=== PATIENT | female | born 1955 | race Caucasian/White ===

== ENCOUNTER 2018-04-14 08:30 | Outpatient (RCR) | payer MEDICAID, SELFPAY ==
--- NOTE | 2018-03-16 10:24 | PTTR_ITS ---
DATE: 03/16/18 SUBJECTIVE: Continues to c/o stiffness when reaching behind her back. OBJECTIVE: KX applied to all codes N/A Manual therapy: ([id number]). To R shoulder: R posterior capsule STM, infraspinatus down regulations, and supraspinatus TPR's GH mobilization, via accessory mobs in loose pack position, and end range oscillations, with focus of flexion and quadrant where she is most limited. Pre rx PROM: Flexion 160*, abduction 150*, ER 90*, IR 90* Post rx PROM: Flexion 170*, abduction 170*, ER 90*, IR 90*. She was then seen by Jaleesa Stephenson PTA for ther ex portion of treatment per my direction Direct treatment time: 30 minutes Total treatment time: 30 minutes
--- NOTE | 2018-03-16 12:24 | PTTR_ITS ---
DATE: 03/16/18 OBJECTIVE: Co treatment with HARJINDER Price. Please see her note for specifics. Therapeutic procedures ([id number]). * X See flow sheet: Progressed pt's UE strengthening and scapular stabilization program per PT instructions. Added body blade for stabilization, increased weights and reps to pt tolerance. * X Provided skilled instruction in proper exercise performance: Pt requires min cueing to maintain proper form and stabilization through dynamic UE movements. * X Provided skilled manual cues to facilitate proper muscle recruitment and/ or movement pattern. Direct treatment time: 30 minutes Total treatment time: 30 minutes
--- NOTE | 2018-03-28 11:20 | PTTR_ITS ---
DATE: 03/28/18 SUBJECTIVE: Nola feels overall she is doing very well, now sleeping without pain and reaching over her head and manipulating object for the majority without pain. She continues to have same amount of discomfort when attempt to reach behind her back, and no mobility gains to unstrap her bra, since start of PT, despite her attempts to stretch her arm and compliancy with HEP. OBJECTIVE: KX applied to all codes N/A Manual therapy: ([id number]). To R shoulder: Distraction and general accessory gliding all planes End range flexion and quadrant mobilization with AP sustained holds. ER and IR mobilization ins loose packed and 90* abduction position, with discomfort. Behind back mobilization, with pain and restriction, with hand reaching sacrum. STM R posterior capsule, infraspinatus, supraspinatus, and pec release Extension cross body stretching. She was then seen by Jaleesa Stephenson PTA for ther ex portion of treatment, see her note. Modification to program, per my directions to encourage IR and subscapular recruitment, for muscle energy assist of behind the back movement. ROM: R shoulder flexion, abduction, ER and IR WNL. IR behind the back: hand reaching sacrum, unchanged pre and post. Direct treatment time: 30 minutes Total treatment time: 30 minutes Assessment: Nola has overall made great gains, but is struggling with movements behind her back, with no positive influence from PT. At this point I would assume her motion and comfort would have improved with this. I suggests ortho consultation, shoulder injection be appropriate to get her over this hump. Plan: Continue 2x/week for mobilization and strengthening, with focus of IR, extension, and subscapularis activation to see if muscle energy efforts may assist with her motion limitation.
--- NOTE | 2018-03-28 12:09 | PTTR_ITS ---
DATE: 03/28/18 OBJECTIVE: Co treatment with HARJINDER Price. Please see her note for specifics. Therapeutic procedures ([id number]). * X See flow sheet: Progressed pt's UE strengthening and scapular stabilization program per PT directions, adding scap retraction isometric holds and retraction iso holds with IR and extension of shoulder. Also increased reps / weight to pt tolerance. * X Provided skilled instruction in proper exercise performance. * X Provided skilled manual cues to facilitate proper muscle recruitment and/ or movement pattern. * X Other: Pt declines need for modalities at end of session. Direct treatment time: 30 minutes Total treatment time: 30 minutes
--- NOTE | 2018-03-30 08:48 | PTTR_ITS ---
DATE: 03/30/18 SUBJECTIVE: No remarkable change from last visit. Reports her shoulder to feel very stiff prior to treatment today, but reports it to be looser post treatment , without restriction at end range. She has put a call into her PCP in regards to ortho consultation referral. OBJECTIVE: KX applied to all codes N/A Manual therapy: ([id number]). To R shoulder: End range flexion and quadrant oscillations, with AP MWM, and grade 4++ oscillations. Incorporate distraction. Demonstrates full ER and IR, without pain at 90* abduction. Restriction with cross body with pain provocation along posterior capsule. R scapula mobilizations all planes, tight fascia restriction distraction. STM to include R scapula framing and mobilization and deep tissue work through the infraspinatus, supraspinatus, and subscapularis. End with cross body stretch in L sidelying, with scapula stabilization - with overpressure of scapula and humerus in opposite directions. ROM pre-rx: flexion 160*, abduction 160*, ER and IR full. ROM post-rx: flexion 175*, abduction 175* Therapeutic procedures ([id number][]). Completed with Jaleesa Stephenson PTA * Direct treatment time: 30 minutes Total treatment time: 30 minutes
--- NOTE | 2018-03-30 13:14 | PTTR_ITS ---
DATE: 03/30/18 OBJECTIVE: Co treatment with HARJINDER Price. Please see her note for specifics. Therapeutic procedures ([id number]). * X See flow sheet: Progressed pt's UE strengthening and scapular stabilization exercises to include higher reps with tubing rows, shoulder extensions, internal and external rotations, etc. Please see flow sheet for specifics. * X Provided skilled instruction in proper exercise performance: Pt requires min cueing only with GH rotation or flexion to maintain proper scapular positioning - does well with all other exercises. * X Other: Completed exercise program under apprentice painter hand supervision in clinic gym. Direct treatment time: 30 minutes Total treatment time: 45 minutes
--- NOTE | 2018-04-10 08:16 | PTTR_ITS ---
DATE: 04/10/18 SUBJECTIVE: Nola stating she continues to make slow gains weekly. She now feels she is able to get her R arm up around her back with more ease, but continues to have discomfort at end range. She is avoiding all lifting with the R shoulder, as it generally exacerbates her symptoms. She has ortho consult at the end of April. OBJECTIVE: ROM active of RUE: Wrist, elbow WNL Flexion 165 Abduction 165, both going more into the scapular plane ER reaches level of T3,4 without discomfort IR about T9/T10 vs. T7 at the L with mild discomfort at end range Passive motion RUE: Pre-treatment: flexion 170, abduction 170 with pain at end range with strong capsular end feel, ER and IR are full. Passively is full with continued discomfort at end ranges, dissipated with AP MWM Strength: RUE Flexion 4+/5 with some discomfort Abduction 4/5 Speeds 4-/5 with pain Lift off 4/5 with pain ER and IR neutral position 5/5 nonirritable. Palpation: tenderness along the proximal bicep tendon and mild discomfort along the posterior capsule of the shoulder. Bicep muscle belly nonirritable. KX applied to all codes Manual therapy: ([id number]).Distraction of R GH joint with accessory gliding all planes with focus of AP mobilization with grade IV++ in neutral position, continuing at end range flexion in quadrant position with mobilization with movement techniques. Mobilization at all end ranges of oscillations of a grade IV++ with distraction utilized as well with focus of flexion in quadrant position. STM with deep tissue work through the R posterior capsule, as well as cross friction of the proximal R bicep tendon. She was then seen by Jaleesa Stephenson PTA for therex portion of treatment. Please see her note for specifics. Direct treatment time: 30 min Total treatment time: 30 min Assessment While Nola has made excellent gains with PT in regards to motion improvements and overall pain reduction, she continues to struggle with end range discomfort. Is clinically demonstrating signs and symptoms of bicep tendinitis, with some questionable subscapularis involvement, however, this may be just related to bicep vulnerability with IR movement, as this would allow for some impingement of the bicep tendon. While she has made good gains, I continue to feel that ortho consult is appropriate as she is unable to resume any lifting activities without exacerbation of her symptoms. In the meantime, I feel continued mobilization is appropriate as we make slow gains weekly as well as general conditioning and strengthening in hopes of returning her to a premorbid level as we continue to make slow gains weekly. Whereas, halting all PT services at this point would likely allow for worsening of her condition. Plan: Proceed 2x/week for R GH joint passive mobilization, soft tissue efforts as appropriate and therex for gross R shoulder girdle stabilization with focus of decompression of the bicep tendon and eccentric strengthening fo the bicep tendon to stimulate healing. JH/fw
--- NOTE | 2018-04-10 10:49 | PTTR_ITS ---
DATE: 04/10/18 OBJECTIVE: Co-treatment with HARJINDER Price. Please see her note for specifics. Therapeutic procedures ([id number]). * X See flow sheet: For scapular stabilization, postural and lower trap strengthening. Added 3x10 eccentric biceps curls to her program today with fatigued noted. * X Provided skilled instruction in proper exercise performance: * X Provided skilled manual cues to facilitate proper muscle recruitment and/ or movement pattern: * X Other: Ends with UBE cycle x 5 minutes via wellness program. Direct treatment time: 25 minutes Total treatment time: 30 minutes Jaleesa Stephenson, SPRING FITTER
--- NOTE | 2018-04-14 12:25 | PTTR_ITS ---
DATE: 04/14/18 SUBJECTIVE: Nola stating she is pretty comfortable overall at the right shoulder with the exception of arm behind back position. She also feels tightness in the back of the arm. OBJECTIVE: Manual therapy: ([id number]): Mobilize right shoulder all planes of motion. Provide inferior and posterolateral glides with most emphasis on stretching the posterior capsule. Mobilize into all planes of motion. Initially tight into both internal and external rotation but eventually able to tolerate full ROM here. Shoulder flexion and abduction reaching approx. 170-175 degrees with end range stretching. Friction massage applied to the long head of the biceps and DTM techniques to the posterior capsule. Therapeutic procedures ([id number]): Performs a therex program focusing on eccentric biceps strengthening, lower trap and postural stabilization activities. Skilled cueing and tactile feedback provided to ensure appropriate movement mechanics and muscle activation throughout. See flow sheet. Tolerates strengthening well today with muscle fatigue noted although no increase in pain. Direct treatment time: 55 minutes Total treatment time: 55 minutes Jaleesa Stephenson, TRANSPORTATION AGENT
== END 2018-04-14 23:59 | disposition home or self-care (01) ==
LOC: PT 08:30
PROVIDERS: PCP Internal Medicine; Referring Provider Internal Medicine; Visit Provider Internal Medicine
DX: M25.511 Pain in right shoulder (principal); M75.31 Calcific tendinitis of right shoulder; M75.41 Impingement syndrome of right shoulder
CPT/HCPCS: 97110; 97140

== ENCOUNTER 2018-07-14 13:07 | Outpatient (REF) | payer MEDICAID, SELFPAY ==
[2018-07-14 22:01] LABS: TSH 0.84 uIU/mL (0.358-3.74)
== END 2018-07-14 13:27 ==
LOC: NCHCN 13:07
PROVIDERS: PCP Internal Medicine; Visit Provider Internal Medicine
DX: E03.9 Hypothyroidism, unspecified (principal)
CPT/HCPCS: 84443

== ENCOUNTER 2018-08-04 00:51 | Outpatient (CLI) | payer MEDICAID, SELFPAY ==
--- NOTE | 2018-08-04 13:02 | DI.MAMMO_ITS ---
SYMPTOM/DIAGNOSIS: WELL ADULT/PREVENTATIVE CARE Z00.00, SCREENING BILATERAL SCREENING MAMMOGRAM: Mammograms were interpreted according to the usual protocol including computer analysis with CAD system, tomosynthesis and C view imaging. Comparison is made with exams from through 2018. The breasts are composed of scattered fibroglandular densities. No suspicious masses or suspicious microcalcifications are seen. There has been no significant change. IMPRESSION: Category 1-B, negative mammogram. Yearly screening mammography is recommended. [facility] ASSESSMENT OF FINDINGS: Negative. Category 1. Patient will receive a letter notifying them of these results. BI-RADS category B. There are scattered areas of fibroglandular density.
== END 2018-08-04 01:11 ==
PROVIDERS: PCP Internal Medicine; Visit Provider Registered Nurse
DX: Z12.31 Encounter for screening mammogram for malignant neoplasm of breast (principal)
CPT/HCPCS: 77063; 77067

== ENCOUNTER 2019-03-27 08:36 | Outpatient (REF) | payer MEDICAID, SELFPAY ==
[2019-03-27 20:56] LABS: Anion Gap 9.5 mmol/L (3-11); BUN 16 mg/dL (7-18); CO2 27.5 mmol/L (21.0-32.0); CREATININE 0.87 mg/dL (0.55-1.02); Calcium 8.5 mg/dL (8.5-10.1); Calculated LDL 163 mg/dL; Chloride 104 mmol/L (98-107); Cholesterol 227 mg/dL (50-200); Glucose 92 mg/dL (70-100); HDL Cholesterol 51 mg/dL (40-60); Potassium 4.3 mmol/L (3.5-5.1); Sodium 141 mmol/L (136-145); Triglyceride 67 mg/dL (30-150)
== END 2019-03-27 08:56 ==
LOC: NCHCN 08:36
PROVIDERS: PCP Internal Medicine; Visit Provider Internal Medicine
DX: I10 Essential (primary) hypertension (principal); E66.9 Obesity, unspecified
CPT/HCPCS: 80048; 80061; 83721

== ENCOUNTER 2020-03-21 09:46 | Outpatient (REF) | payer MEDICARE, OTHER, SELFPAY ==
[2020-03-21 21:03] LABS: Calculated LDL 167 mg/dL (<100); Cholesterol 232 mg/dL (<200); HDL Cholesterol 48 mg/dL (40-60); Triglyceride 85 mg/dL (<150)
== END 2020-03-21 10:06 ==
LOC: NCHCN 09:46
PROVIDERS: PCP Internal Medicine; Visit Provider Internal Medicine
DX: I10 Essential (primary) hypertension (principal); E03.9 Hypothyroidism, unspecified; Z13.6 Encounter for screening for cardiovascular disorders
CPT/HCPCS: 80061

== ENCOUNTER 2020-04-30 01:05 | Outpatient (CLI) | payer MEDICARE, OTHER, SELFPAY ==
--- NOTE | 2020-04-30 | DI.DEXA_ITS ---
EXAM: XR DEXA BONE DENSITY W/WO XOCHITL CLINICAL HISTORY: SCREENING FOR OSTEOPOROSIS IN POSTMENOPAUSAL WOMAN,Z78.0 TECHNIQUE: COMPARISON: No exams were available for comparison FINDINGS: DEXA scan was performed according to the usual protocol. Please see the accompanying data sheets. F indings for left hip scanning are T-score -1.2 with left femoral neck T-score -1.5. Lumbar spine scanning shows T-score 0.1. Right forearm scanning shows T-score -1.1. IMPRESSION: Findings consistent with osteopenia according to the WHO criteria. The lateral vertebral scanogram s hows no evidence of a vertebral compression fracture. RADIATION DOSE DELIVERED: Total DLP
== END 2020-04-30 01:25 ==
PROVIDERS: PCP Internal Medicine; Visit Provider Internal Medicine
DX: M85.89 Other specified disorders of bone density and structure, multiple sites (principal); Z78.0 Asymptomatic menopausal state
CPT/HCPCS: 77080

== ENCOUNTER 2020-10-16 02:10 | Outpatient (CLI) | payer MEDICARE, OTHER, SELFPAY ==
--- NOTE | 2020-10-16 | DI.MAMMO_ITS ---
EXAM: MG MAMMO SCREENING CLINICAL HISTORY: SCREENING,Z12.39 TECHNIQUE: Bilateral full field digital CC and MLO mammographic images were obtained with 3D tomosyn thesis and utilizing computer aided detection (CAD). COMPARISON: Available for comparison. FINDINGS: Masses/Architectural Distortion: None seen. Microcalcifications: No suspicious pleomorphic-type are seen. Skin Thickening/Nipple Retraction: None. IMPRESSION: 1. No significant interval change with no specific features of malignancy noted. 2. Unless there is more urgent need, screening mammography is recommended, as per [employer] guidelines. BI-RADS Category 1 - Negative Breast Density - Category B - Scattered areas of fibroglandular density Breast density category C or D implies that the patient has dense breast tissue. Dense breast tissue is very common and is not abnormal but dense breast tissue can make it harder to find cancer on a ma mmogram. Also, dense breast tissue may increase their breast cancer risk. This information about the result of the mammogram report was provided to the patient to raise their awareness. Use this report when you speak with the patient about their risks for breast cancer, which includes their family hist ory. At that time, you may recommend for more screening tests (Ultrasound or MRI) as they might be us eful based on their risk. A negative radiographic report should not delay biopsy if a dominant or clinically suspicious mass is present. Up to ten percent of cancers are not identified on mammography. A negative report may reinforce clinical impression. Adenosis and dense breasts may obscure an underlying neoplasm. False positive reports average 6 to 10%. Patient will receive a letter notifying them of these results.
== END 2020-10-16 02:30 ==
PROVIDERS: PCP Internal Medicine; Visit Provider Internal Medicine
DX: Z12.31 Encounter for screening mammogram for malignant neoplasm of breast (principal)
CPT/HCPCS: 77063; 77067

== ENCOUNTER 2021-04-01 15:44 | Outpatient (REF) | payer MEDICARE, OTHER, SELFPAY ==
[2021-04-01 16:37] LABS: ALT 49 U/L (14-59); AST 26 U/L (15-37); Albumin 3.9 g/dL (3.4-5.0); Alkaline Phosphatase 86 U/L (46-116); Anion Gap 8.1 mmol/L (3-11); BUN 14 mg/dL (7-18); Bilirubin, Total 0.3 mg/dL (0.2-1.0); CO2 28.9 mmol/L (21.0-32.0); CREATININE 0.8 mg/dL (0.55-1.02); Calcium 8.6 mg/dL (8.5-10.1); Calculated LDL 161 mg/dL (<100); Chloride 105 mmol/L (98-107); Cholesterol 227 mg/dL (<200); Glucose 104 mg/dL (74-106); HDL Cholesterol 44 mg/dL (40-60); Potassium 4.4 mmol/L (3.5-5.1); Sodium 142 mmol/L (136-145); TSH 0.27 uIU/mL (0.36-3.74); Total Protein 6.9 g/dL (6.4-8.2); Triglyceride 112 mg/dL (<150)
[2021-04-01 17:34] LABS: Abs Immature Grans 0.01 10^3/uL (0.0-0.06); Absolute Basophil Count 0.04 10^3/uL (0.0-0.2); Absolute Eosinophil Count 0.32 10^3/uL (0.0-0.7); Absolute Lymphocyte Count 2.19 10^3/uL (1.2-3.4); Absolute Monocyte Count 0.47 10^3/uL (0.1-0.8); Absolute Neutrophil Count 3.56 10^3/uL (1.2-6.7); Basophils % 0.6; Eosinophils % 4.9; HCT 46.9 % (36.0-46.0); HGB 15.3 g/dL (11.2-15.7); Immature Grans % 0.2; Lymphocytes % 33.2; MCH 29.1 pg (27.0-33.0); MCHC 32.6 % (32.0-36.0); MCV 89.3 fL (80-95); MPV 9.5 fL (8.0-11.0); Monocytes % 7.1; Nucleated RBC 0 %; Platelet Count 238 10^3/uL (130-400); RBC 5.25 10^6/uL (3.93-5.22); RDW-SD 42.6 fL; WBC 6.59 10^3/uL (4.4-10.8)
== END 2021-04-01 15:45 | disposition home or self-care (01) ==
LOC: NCHCN 15:44
PROVIDERS: PCP Internal Medicine; Visit Provider Internal Medicine
DX: E03.9 Hypothyroidism, unspecified (principal); I10 Essential (primary) hypertension; R79.89 Other specified abnormal findings of blood chemistry; I48.0 Paroxysmal atrial fibrillation
CPT/HCPCS: 80053; 80061; 84443; 85025

== ENCOUNTER 2021-06-01 14:13 | Outpatient (REF) | payer MEDICARE, OTHER, SELFPAY ==
[2021-06-01 15:51] LABS: TSH 3.32 uIU/mL (0.36-3.74)
== END 2021-06-01 14:14 | disposition home or self-care (01) ==
LOC: NCHCN 14:13
PROVIDERS: PCP Internal Medicine; Visit Provider Internal Medicine
DX: E03.9 Hypothyroidism, unspecified (principal)
CPT/HCPCS: 84443

== ENCOUNTER 2021-12-21 16:56 | Outpatient (REF) | payer MEDICARE, OTHER, SELFPAY ==
[2021-12-21 16:17] LABS: Anion Gap 6.4 mmol/L (3-11); BUN 12 mg/dL (7-18); CO2 29.6 mmol/L (21.0-32.0); CREATININE 0.8 mg/dL (0.55-1.02); Calcium 8.6 mg/dL (8.5-10.1); Chloride 105 mmol/L (98-107); Glucose 102 mg/dL (74-106); Potassium 3.7 mmol/L (3.5-5.1); Sodium 141 mmol/L (136-145)
== END 2021-12-21 16:57 | disposition home or self-care (01) ==
LOC: NCHCN 16:56
PROVIDERS: PCP Internal Medicine; Visit Provider Internal Medicine
DX: I10 Essential (primary) hypertension (principal)
CPT/HCPCS: 80048

== ENCOUNTER 2022-03-30 10:05 | Outpatient (REF) | payer MEDICARE, OTHER, SELFPAY ==
[2022-03-30 15:54] LABS: Abs Immature Grans 0.02 10^3/uL (0.0-0.06); Absolute Basophil Count 0.06 10^3/uL (0.0-0.2); Absolute Eosinophil Count 0.27 10^3/uL (0.0-0.7); Absolute Lymphocyte Count 2.14 10^3/uL (1.2-3.4); Absolute Monocyte Count 0.43 10^3/uL (0.1-0.8); Absolute Neutrophil Count 4.67 10^3/uL (1.2-6.7); Basophils % 0.8; Eosinophils % 3.6; HCT 46.2 % (36.0-46.0); HGB 15.6 g/dL (11.2-15.7); Immature Grans % 0.3; Lymphocytes % 28.2; MCH 29.8 pg (27.0-33.0); MCHC 33.8 % (32.0-36.0); MCV 88 fL (80-95); MPV 9.4 fL (8.0-11.0); Monocytes % 5.7; Neutrophils % 61.4; Platelet Count 223 10^3/uL (130-400); RBC 5.24 10^6/uL (3.93-5.22); RDW 12.6 % (11.7-14.6); RDW-SD 41.1 fL; WBC 7.59 10^3/uL (4.4-10.8)
[2022-03-30 16:11] LABS: ALT 32 U/L (14-59); AST 25 U/L (15-37); Albumin 3.9 g/dL (3.4-5.0); Alkaline Phosphatase 106 U/L (46-116); Anion Gap 8.1 mmol/L (3-11); BUN 18 mg/dL (7-18); Bilirubin, Total 0.4 mg/dL (0.2-1.0); CO2 29.9 mmol/L (21.0-32.0); CREATININE 0.9 mg/dL (0.55-1.02); Calcium 9.2 mg/dL (8.5-10.1); Calculated LDL 99 mg/dL (<100); Chloride 103 mmol/L (98-107); Cholesterol 172 mg/dL (<200); Glucose 105 mg/dL (74-106); HDL Cholesterol 56 mg/dL (40-60); Potassium 4.4 mmol/L (3.5-5.1); Sodium 141 mmol/L (136-145); TSH 0.72 uIU/mL (0.36-3.74); Total Protein 7.6 g/dL (6.4-8.2); Triglyceride 89 mg/dL (<150)
[2022-03-31 11:43] LABS: Hepatitis C Ab w Rflx HCV PCR Reactive (Negative)
[2022-04-01 15:27] LABS: HCV RNA Qualitative Undetected (Undetected)
== END 2022-03-30 10:06 | disposition home or self-care (01) ==
LOC: NCHCN 10:05
PROVIDERS: PCP Internal Medicine; Visit Provider Internal Medicine
DX: I10 Essential (primary) hypertension (principal); E03.9 Hypothyroidism, unspecified; I48.0 Paroxysmal atrial fibrillation; R79.89 Other specified abnormal findings of blood chemistry; Z13.6 Encounter for screening for cardiovascular disorders; Z11.59 Encounter for screening for other viral diseases
CPT/HCPCS: 80053; 80061; 86803; 87522; 84443; 85025

== ENCOUNTER → 2022-08-05 01:04 | Outpatient (CLI) | payer MEDICARE, OTHER, SELFPAY ==
--- NOTE | 2022-08-05 | DI.MAMMO_ITS ---
Exam(s) MAMMO SCREENING EXAM: MAMMO SCREENING CLINICAL HISTORY: SCREENING, Z12.39 TECHNIQUE: Mammograms were interpreted according to the usual protocol including computer analysis w [employer] CAD system, tomosynthesis and C-view imaging. COMPARISON: 2015 through 2020 FINDINGS: The breasts are composed of scattered fibroglandular densities, Breast Density category B. No suspicious masses or suspicious microcalcifications are seen. No skin thickening or abnormal axillary lymph nodes are seen. There has been no significant change from prior exams. IMPRESSION: BI-RADS Category 1, Negative mammogram Yearly screening mammography is recommended. Breast Density - Category B, scattered fibroglandular densities. A negative radiographic report should not delay biopsy if a dominant or clinically suspicious mass is present. Up to ten percent of cancers are not identified on mammography. A negative report may reinforce clinical impression. Adenosis and dense breasts may obscure an underlying neoplasm. False positive reports average 6 to 10%. Patient will receive a letter notifying them of these results.
== END ==
PROVIDERS: PCP Internal Medicine; Visit Provider Internal Medicine
DX: Z12.31 Encounter for screening mammogram for malignant neoplasm of breast (principal)
CPT/HCPCS: 77063; 77067

== ENCOUNTER 2022-09-29 14:44 | Outpatient (REF) | payer MEDICARE, OTHER, SELFPAY ==
[2022-09-29 21:12] LABS: HCT 43.9 % (36.0-46.0); HGB 14.2 g/dL (11.2-15.7); MCH 29.2 pg (27.0-33.0); MCHC 32.3 % (32.0-36.0); MCV 90 fL (80-95); MPV 9.3 fL (8.0-11.0); Platelet Count 244 10^3/uL (130-400); RBC 4.87 10^6/uL (3.93-5.22); RDW 12.6 % (11.7-14.6); WBC 7.14 10^3/uL (4.4-10.8)
[2022-09-29 21:35] LABS: ALT 31 U/L (14-59); AST 29 U/L (15-37); Albumin 3.8 g/dL (3.4-5.0); Alkaline Phosphatase 90 U/L (46-116); Anion Gap 6.3 mmol/L (3-11); BUN 18 mg/dL (7-18); Bilirubin, Total 0.6 mg/dL (0.2-1.0); CO2 29.7 mmol/L (21.0-32.0); CREATININE 0.9 mg/dL (0.55-1.02); Calcium 8.9 mg/dL (8.5-10.1); Chloride 104 mmol/L (98-107); Estimated GFR 69.64 (mL/min/1.73m2); Glucose 93 mg/dL (74-106); Potassium 3.9 mmol/L (3.5-5.1); Sodium 140 mmol/L (136-145); TSH 0.38 uIU/mL (0.36-3.74); Total Protein 6.9 g/dL (6.4-8.2)
== END 2022-09-29 14:45 | disposition home or self-care (01) ==
LOC: NCHCN 14:44
PROVIDERS: PCP Internal Medicine; Visit Provider Internal Medicine
DX: I10 Essential (primary) hypertension (principal); E03.9 Hypothyroidism, unspecified; I48.0 Paroxysmal atrial fibrillation
CPT/HCPCS: 80053; 85027; 84443

== ENCOUNTER 2023-01-03 15:51 | Outpatient (REF) | payer MEDICARE, OTHER, SELFPAY ==
[2023-01-03 21:21] LABS: Abs Immature Grans 0.04 10^3/uL (0.0-0.06); Absolute Basophil Count 0.06 10^3/uL (0.0-0.2); Absolute Eosinophil Count 0.28 10^3/uL (0.0-0.7); Absolute Lymphocyte Count 2.64 10^3/uL (1.2-3.4); Absolute Monocyte Count 0.65 10^3/uL (0.1-0.8); Basophils % 0.6; Eosinophils % 2.9; HCT 45.4 % (36.0-46.0); HGB 14.9 g/dL (11.2-15.7); Immature Grans % 0.4; Lymphocytes % 27.6; MCH 29.7 pg (27.0-33.0); MCHC 32.8 % (32.0-36.0); MCV 90 fL (80-95); MPV 9.1 fL (8.0-11.0); Monocytes % 6.8; Neutrophils % 61.7; Platelet Count 286 10^3/uL (130-400); RBC 5.02 10^6/uL (3.93-5.22); RDW 13.1 % (11.7-14.6); RDW-SD 43.2 fL; WBC 9.57 10^3/uL (4.4-10.8)
[2023-01-03 21:28] LABS: C-Reactive Protein 0.17 mg/dL (0.0-0.3)
[2023-01-03 22:22] LABS: ESR 11 mm/hr (0-30)
== END 2023-01-03 15:52 | disposition home or self-care (01) ==
LOC: NCHCN 15:51
PROVIDERS: PCP Internal Medicine; Visit Provider Internal Medicine
DX: H15.009 Unspecified scleritis, unspecified eye (principal)
CPT/HCPCS: 85652; 85025; 86140

== ENCOUNTER 2023-08-19 11:48 | Outpatient (REF) | payer MEDICARE, OTHER, SELFPAY | END 2023-08-19 11:49 | disposition home or self-care (01) | LOC: NCHCN 11:48 | PROVIDERS: PCP Internal Medicine; Visit Provider Family Medicine | DX: R31.9 Hematuria, unspecified (principal) | CPT/HCPCS: 87086 ==

== ENCOUNTER 2023-10-26 14:28 | Outpatient (REF) | payer MEDICARE, OTHER, SELFPAY ==
[2023-10-26 15:28] LABS: HCT 46.2 % (36.0-46.0); HGB 15.4 g/dL (11.2-15.7); MCH 29.4 pg (27.0-33.0); MCHC 33.3 % (32.0-36.0); MCV 88 fL (80-95); MPV 9.4 fL (8.0-11.0); Platelet Count 248 10^3/uL (130-400); RBC 5.23 10^6/uL (3.93-5.22); RDW 12.6 % (11.7-14.6); RDW-SD 41.3 fL; WBC 7.22 10^3/uL (4.4-10.8)
[2023-10-26 15:55] LABS: BUN 17 mg/dL (7-18); Calcium 8.9 mg/dL (8.5-10.1); Calculated LDL 62 mg/dL (<100); Chloride 105 mmol/L (98-107); Cholesterol 146 mg/dL (<200); Estimated GFR 60.98 (mL/min/1.73m2); Glucose 145 mg/dL (74-106); HDL Cholesterol 44 mg/dL (40-60); Potassium 4.1 mmol/L (3.5-5.1); Sodium 141 mmol/L (136-145); TSH 0.34 uIU/Ml (0.36-3.74); Triglyceride 203 mg/dL (<150)
== END 2023-10-26 14:29 | disposition home or self-care (01) ==
LOC: NCHCN 14:28
PROVIDERS: PCP Internal Medicine; Referring Provider Internal Medicine; Visit Provider Internal Medicine
DX: E03.9 Hypothyroidism, unspecified (principal)
CPT/HCPCS: 80048; 80061; 85027; 84443

== ENCOUNTER → 2023-11-11 01:07 | Outpatient (CLI) | payer MEDICARE, OTHER, SELFPAY ==
--- NOTE | 2023-11-11 | DI.MAMMO_ITS ---
Exam(s) MAMMO SCREENING EXAM: MAMMO SCREENING CLINICAL HISTORY: SCREENING FOR BREAST CANCER Z12.31 TECHNIQUE: Mammograms were interpreted according to the usual protocol including computer analysis w [employer] CAD system, tomosynthesis and C-view imaging. COMPARISON: 2015 through 2021 FINDINGS: The breasts are composed of scattered fibroglandular densities, Breast Density category B. No suspicious masses or suspicious microcalcifications are seen. No skin thickening or abnormal axillary lymph nodes are seen. There has been no significant change from prior exams. IMPRESSION: BI-RADS Category 1, Negative mammogram Yearly screening mammography is recommended. Breast Density - Category B, scattered fibroglandular densities. A negative radiographic report should not delay biopsy if a dominant or clinically suspicious mass is present. Up to ten percent of cancers are not identified on mammography. A negative report may reinforce clinical impression. Adenosis and dense breasts may obscure an underlying neoplasm. False positive reports average 6 to 10%. Patient will receive a letter notifying them of these results.
== END ==
PROVIDERS: PCP Internal Medicine; Visit Provider Internal Medicine
DX: Z12.31 Encounter for screening mammogram for malignant neoplasm of breast (principal)
CPT/HCPCS: 77063; 77067

== ENCOUNTER 2024-01-30 09:57 | Outpatient (REF) | payer MEDICARE, OTHER, SELFPAY ==
[2024-01-30 15:44] LABS: ALT 34 U/L (14-59); AST 25 U/L (15-37); Albumin 4.1 g/dL (3.4-5.0); Alkaline Phosphatase 94 U/L (46-116); TSH 0.45 uIU/Ml (0.36-3.74); Total Protein 7.1 g/dL (6.4-8.2); Vitamin D 25 Total 24.6 ng/mL (30-100)
[2024-01-30 16:16] LABS: Bilirubin, Direct 0.2 mg/dL (0.0-0.2); Bilirubin, Total 1.1 mg/dL (0.2-1.0)
== END 2024-01-30 09:58 | disposition home or self-care (01) ==
LOC: NCHCN 09:57
PROVIDERS: PCP Internal Medicine; Visit Provider Internal Medicine
DX: E03.9 Hypothyroidism, unspecified (principal); M85.89 Other specified disorders of bone density and structure, multiple sites; R79.9 Abnormal finding of blood chemistry, unspecified
CPT/HCPCS: 80076; 82306; 84443

== ENCOUNTER 2024-07-26 15:24 | Outpatient (REF) | payer MEDICARE, OTHER, SELFPAY | END 2024-07-26 15:25 | disposition home or self-care (01) | LOC: NCHCN 15:24 | PROVIDERS: PCP Internal Medicine; Visit Provider Family Medicine | DX: N30.00 Acute cystitis without hematuria (principal) | CPT/HCPCS: 87077; 87086; 87186 ==

== ENCOUNTER 2024-10-31 08:50 | Outpatient (REF) | payer MEDICARE, OTHER, SELFPAY ==
[2024-10-31 14:13] LABS: HCT 48.6 % (36.0-46.0); HGB 15.8 g/dL (11.2-15.7); MCH 29.9 pg (27.0-33.0); MCHC 32.5 % (32.0-36.0); MCV 92 fL (80-95); MPV 9.1 fL (8.0-11.0); Platelet Count 221 10^3/uL (130-400); RBC 5.28 10^6/uL (3.93-5.22); RDW 12.6 % (11.7-14.6); RDW-SD 42.5 fL; WBC 7.46 10^3/uL (4.4-10.8)
[2024-10-31 14:50] LABS: ALT 38 U/L (14-59); AST 32 U/L (15-37); Albumin 4.1 g/dL (3.4-5.0); Alkaline Phosphatase 108 U/L (46-116); Anion Gap 5.5 mmol/L (3-11); BUN 15 mg/dL (7-18); Bilirubin, Total 0.6 mg/dL (0.2-1.0); CO2 33.5 mmol/L (21.0-32.0); CREATININE 0.8 mg/dL (0.55-1.02); Calcium 9.4 mg/dL (8.5-10.1); Calculated LDL 101 mg/dL (<100); Chloride 107 mmol/L (98-107); Cholesterol 186 mg/dL (<200); Estimated GFR 79.22 (mL/min/1.73m2); Glucose 101 mg/dL (74-106); HDL Cholesterol 52 mg/dL (>or=50); Potassium 4.4 mmol/L (3.5-5.1); Sodium 146 mmol/L (136-145); Total Protein 7.9 g/dL (6.4-8.2); Triglyceride 167 mg/dL (<150)
== END 2024-10-31 08:51 | disposition home or self-care (01) ==
LOC: NCHCN 08:50
PROVIDERS: PCP Internal Medicine; Visit Provider Internal Medicine
DX: E66.9 Obesity, unspecified (principal)
CPT/HCPCS: 80053; 80061; 85027

== ENCOUNTER 2024-11-16 00:47 | Outpatient (CLI) | payer MEDICARE, OTHER, SELFPAY ==
--- NOTE | 2024-11-16 | DI.MAMMO_ITS ---
Exam(s) MAMMO SCREENING EXAM: MAMMO SCREENING CLINICAL HISTORY: SCREENING,Z12.39. TECHNIQUE: Bilateral full field digital CC and MLO mammographic images were obtained with 3D tomosyn thesis and utilizing computer aided detection (CAD). COMPARISON: Prior mammograms were reviewed. FINDINGS: There has been no significant change in the appearance and distribution of the fibroglandular tissue. There are no new spiculated masses nor malignant appearing microcalcification groups. There is no significant architectural distortion nor skin thickening-retraction. IMPRESSION: No radiographic evidence of malignancy. BI-RADS Category 1 - Negative Breast Density - Category C - Heterogeneously dense Breast density Category C or D implies that the patient has dense breast tissue. Dense breast tissue can make it harder to find cancer on a mammogram. Dense breast tissue is also associated with an incr eased risk of breast cancer. This information about the result of the mammogram report was provided to the patient to raise their awareness. Use this report when you speak with the patient about their risks for breast cancer, which includes their family history. At that time, you may recommend additional screening tests (Ultrasoun d or MRI) as these tests may add significant information. A negative radiographic report should not delay biopsy if a dominant or clinically suspicious mass is present. Up to ten percent of cancers are not identified on mammography. A negative report may reinforce clinical impression. Adenosis and dense breasts may obscure an underlying neoplasm. False positive reports average 6 to 10%. Patient will receive a letter notifying them of these results.
== END 2024-11-16 01:07 ==
LOC: DI 00:47
PROVIDERS: PCP Internal Medicine; Visit Provider Internal Medicine
DX: Z12.31 Encounter for screening mammogram for malignant neoplasm of breast (principal); R92.333 Mammographic heterogeneous density, bilateral breasts
CPT/HCPCS: 77063; 77067

== ENCOUNTER 2024-12-26 10:29 | Outpatient (REF) | payer MEDICARE, OTHER, SELFPAY | END 2024-12-26 10:30 | disposition home or self-care (01) | LOC: NCHCN 10:29 | PROVIDERS: PCP Internal Medicine; Visit Provider Internal Medicine | DX: R30.0 Dysuria (principal) | CPT/HCPCS: 87077; 87086; 87186 ==

== ENCOUNTER 2025-05-01 15:37 | Outpatient (REF) | payer MEDICARE, OTHER, SELFPAY ==
[2025-05-01 14:36] LABS: HCT 47.1 % (36.0-46.0); HGB 15.2 g/dL (11.2-15.7); MCH 28.9 pg (27.0-33.0); MCHC 32.3 % (32.0-36.0); MCV 90 fL (80-95); MPV 9.1 fL (8.0-11.0); Platelet Count 247 10^3/uL (130-400); RBC 5.26 10^6/uL (3.93-5.22); RDW 12.9 % (11.7-14.6); RDW-SD 42.4 fL; WBC 7.85 10^3/uL (4.4-10.8)
[2025-05-01 15:23] LABS: TSH 3.04 uIU/mL (0.36-3.74)
[2025-05-01 15:36] LABS: Hemoglobin A1C 6.0 % (<5.7)
== END 2025-05-01 15:38 | disposition home or self-care (01) ==
LOC: NCHCN 15:37
PROVIDERS: PCP Internal Medicine; Visit Provider Internal Medicine
DX: R73.01 Impaired fasting glucose (principal); E03.9 Hypothyroidism, unspecified; D75.1 Secondary polycythemia
CPT/HCPCS: 85027; 83036; 84443

== ENCOUNTER 2025-05-30 05:40 | Outpatient (CLI) | payer MEDICARE, OTHER, SELFPAY ==
--- NOTE | 2025-05-30 | DI.DEXA_ITS ---
Exam(s) XR DEXA BONE DENSITY W/WO XOCHITL EXAM: XR DEXA BONE DENSITY W/WO XOCHITL CLINICAL HISTORY: ASYMPTOMATIC POSTMENOPAUSAL STATUS,Z78.0 TECHNIQUE: [employer] C densitometer analysis of left hip, lumbar spine and left forearm. Lateral survey image of the thoracic and lumbar spine. COMPARISON: CR XR DEXA BONE DENSITY W/WO XOCHITL from 04/30/2020 FINDINGS: Lateral view of the thoracic and lumbar spine shows no evidence of compression fractures. Bone mineral density measurements of the lumbar spine correspond to a total T- score of 0.1, in the normal range. This is not significantly changed from the prior exam. Bone mineral density measurements of the left hip correspond to a total T-score of -1.2, not significantly changed.. The femoral neck T-score is -1.6, in the osteopenic range. Theright forearm bone mineral density measurements correspond to a T-score of the distal 3rd of -0.9, in the normal range. This is not significantly changed from prior. IMPRESSION: Normal bone mineral density of the spine and forearm. Osteopenia of the hip.
== END 2025-05-30 06:00 ==
LOC: DI 05:43
PROVIDERS: PCP Internal Medicine; Visit Provider Internal Medicine
DX: Z78.0 Asymptomatic menopausal state (principal); M85.88 Other specified disorders of bone density and structure, other site
CPT/HCPCS: 77080